=== PATIENT | female | born 1940 | race Caucasian/White ===

== ENCOUNTER 2018-04-10 14:53 | Emergency (ER) | payer MEDICARE, BC ==
[~2018-04-10] VITALS: Ht 167.6 cm; Wt 74.0 kg
[2018-04-10 14:55] VITALS: Ht 167.6 cm; Wt 74.0 kg
[2018-04-10 16:00] VITALS: BP 151/82; PULSE 84; RESP 20
--- NOTE | 2018-04-10 17:03 | ERD ---
ER Documentation Chief Complaint Chief Complaint Patient OCTAVIA with complaint of chest pain after receiving of upsetting news HPI This is a 77-year-old female with past medical history of [id number] diabetes mellitus and hypertension. The patient had gotten in a verbal argument with her just prior to arrival. She felt lightheaded and dizzy. She had a brief transient loss of consciousness with loss of postural tone for roughly 10 seconds. She did not fall or hit her head according to the patient. She was standing when this occurred but her was able to catch her. She afterwards complained of palpitations and chest pain. She stated she had no chest pressure but was rather a dull achy sensation. This was occurring during her yelling. EMS was called [facility]. She denies a headache or neck pain. She stated her symptoms had completely resolved. ROS All systems reviewed and are negative except as per history of present illness. Medications Home Meds Unable to Obtain Active Prescriptions or Reported Meds Allergies Allergies: Coded Allergies: No Known Allergy (Unverified , 04/10/18) PMhx/Soc History of Surgery: No Anesthesia Reaction: No Hx Neurological Disorder: No Hx Respiratory Disorders: No Hx Cardiac Disorders: No Hx Psychiatric Problems: No Hx Miscellaneous Medical Probl: No Hx Alcohol Use: No Hx Substance Use: No Hx Tobacco Use: No Smoking Status: Never smoker Physical Exam Vitals Vital Signs Date Temp Pulse Resp B/P (MAP) Pulse Ox O2 O2 Flow FiO2 Time Delivery Rate 04/10/18 98.3 84 20 151/82 98 Room Air 16:00 (105) 04/10/18 98.3 81 20 134/77 98 Room Air 15:30 (96) 04/10/18 Nasal 15:09 Cannula 04/10/18 98.3 90 20 143/68 98 Room Air 15:00 (93) 04/10/18 98.7 90 20 167/78 95 14:55 (107) Physical Exam Constitutional:Well-developed. Well-nourished. HEENT:Normocephalic. Atraumatic.Pupils were equal round reactive to light. Moist mucous membranes.No tonsillar exudates. Neck: No nuchal rigidity. No lymphadenopathy. No posterior cervical spine tenderness or step-offs. Respiratory: Not using accessory muscles of respiration.Lungs were clear to auscultation bilaterally. No rhonchi. No rales. No wheezing. Cardiovascular: Regular rate regular rhythm.No murmurs. No rubs were appreciated.S1, S2 normal. Distal pulses are palpable 2+ bilaterally. Bilateral chest wall tenderness with no crepitus no ecchymosis no flail chest. GI: Abdomen was soft. Nontender. Non Distended. No pulsatile abdominal masses or bruits. No rebound. No guarding. Bowel sounds were present and normal. Muscle skeletal: Full range of motion of both the upper and lower extremities bilaterally.Normal muscle tone.No assymetrical calf tenderness or swelling. Skin: No petechia, no purpura. No lesions on the palms or the soles of the feet. No maculopapular rash. NEURO: Patient was alert, awake, orientated x3.No facial droop. Gait observed and normal with no ataxia.Speech had regular rate and rhythm. No focal neurological deficits. Result Diagram: 04/10/18 1511 04/10/18 1511 Results 24 hrs Laboratory Tests Test 04/10/18 15:11 White Blood Count 6.7 10^3/ul Red Blood Count 4.81 10^6/ul Hemoglobin 12.8 g/dl Hematocrit 40.6 % Mean Corpuscular Volume 84.4 fl Mean Corpuscular Hemoglobin 26.6 pg Mean Corpuscular Hemoglobin Concent 31.5 g/dl Red Cell Distribution Width 13.2 % Platelet Count 234 10^3/UL Mean Platelet Volume 9.6 fl Immature Granulocytes % 0.300 % Neutrophils % 59.6 % Lymphocytes % 30.4 % Monocytes % 7.6 % Eosinophils % 1.8 % Basophils % 0.3 % Nucleated Red Blood Cells % 0.0 /100WBC Immature Granulocytes # 0.020 10^3/ul Neutrophils # 4.0 10^3/ul Lymphocytes # 2.0 10^3/ul Monocytes # 0.5 10^3/ul Eosinophils # 0.1 10^3/ul Basophils # 0.0 10^3/ul Nucleated Red Blood Cells # 0.0 10^3/ul Prothrombin Time 12.6 Sec Prothrombin Time Ratio 1.0 INR International Normalized Ratio 0.93 Activated Partial Thromboplast Time 29.1 Sec Sodium Level 139 mmol/L Potassium Level 3.5 mmol/L Chloride Level 106 mmol/L Carbon Dioxide Level 25 mmol/L Anion Gap 8 Blood Urea Nitrogen 14 mg/dl Creatinine 0.44 mg/dl Est Glomerular Filtrat Rate mL/min mL/min Glucose Level 134 mg/dl Calcium Level 10.3 mg/dl Total Bilirubin 0.5 mg/dl Direct Bilirubin 0.00 mg/dl Indirect Bilirubin 0.5 mg/dl Aspartate Amino Transf (AST/SGOT) 21 IU/L Alanine Aminotransferase (ALT/SGPT) 14 IU/L Alkaline Phosphatase 81 IU/L Creatine Kinase 50 IU/L Creatine Kinase Index 1.7 Creatinine Kinase MB (Mass) 0.84 ng/ml Troponin I < 0.012 ng/ml B-Type Natriuretic Peptide 136 PG/ML Total Protein 7.2 g/dl Albumin 4.1 g/dl Globulin 3.10 g/dl Albumin/Globulin Ratio 1.32 Lipase 82 U/L Procedures/MDM The patient presented to the emergency department with a transient loss of consciousness with loss of postural tone, suggestive of a syncope episode. The differential diagnosis of syncope is vast but my workup considered common benign disorders to life-threatening processes. Therefore my differential diagnosis included but was not limited to reflex-mediated syncope such as vasovagal or carotid sinus syncope from coughing, sneezing, micturition, or GI stimulation (eg, defecation). Other etiologies in my workup included orthostatic hypotension which could cause syncope from an abrupt drop in venous return to heart from volume depletion. An EKG and cardiac enzymes were obtained to rule out cardiac arrhythmias or ischemia. Cardiopulmonary disease such as valvular disease, hypertrophic cardiomyopathy, pericardial tamponade, or pulmonary embolism were considered as a factor causing the patients syncope episode. The patient had no difference in blood pressure in both arms that could suggest aortic dissection or subclavian steal syndrome. Rectal exam was negative for fecal occult blood that could suggest GI bleeding. Ancillary laboratory work was obtained to evaluate for metabolic or electrolyte abnormalities. The patient had no witnessed brief tonic movements that could suggest postictal confusion. The patient was placed on a cardiac/vascular sonographer, continuous pulse oximetry and IV access established by nursing staff. The patient was given aspirin nitroglycerin but this did not improve her pain. I felt the chest pain was more likely pleuritic in nature as it was reproducible. She did receive intravenous morphine and Zofran with complete resolution of her symptoms. I obtained a CT scan the patient's head for further evaluation into the syncope episode. There is no intracerebral hemorrhage mass-effect or midline shift. The patient had no focal neurological deficits. The patient's daughter in law and son are present. They did feel that her symptoms likely were exacerbated by an acute stress reaction which I did feel was a result of all of her symptoms. She has very good outpatient follow-up and stated she did not feel that she wanted to be admitted to the hospital for observation. 12 Lead EKG tracing ordered and reviewed by myself showed: Normal sinus rhythm of 85 bpm and no arrhythmia. [place] interval normal. QRS duration normal. No ST segment elevation No ST segment depression. No changes consistent with acute ischemia. The patient was discharged home in fair condition. They were instructed to return to the emergency department at any time if there was any worsening of their condition. The patient stated they would follow up with their PCP in the next 24-48 hours to initiate a suitable medication regimen under the care of their PCP as well as to allow their PCP to monitor any drug reactions. The patient was discharged home with prescriptions after they gave informed consent to the new medication. They were also fully informed by myself on the adverse effects and adverse drug interactions in order to provide adequate safeguards to prevent possible adverse reactions to medications. Departure Diagnosis: Primary Impression: Vasovagal syncope Additional Impressions: Acute stress reaction Chest wall pain Condition: Fair NOE JOHNSTON MD Apr 10, 2018 17:03
== END 2018-04-10 17:35 | disposition home or self-care (01) ==
LOC: E/R 14:53
DX: R55 Syncope and collapse (principal); R07.89 Other chest pain; F43.0 Acute stress reaction; I10 Essential (primary) hypertension; E11.9 Type 2 diabetes mellitus without complications
CPT/HCPCS: 70450; 71045; 80053; 82550; 82553; 83690; 83880; 84484; 85025; 85610; 85730; 93005